=== PATIENT | female | born 1975 | race Caucasian/White ===

== ENCOUNTER 2025-04-05 11:12 | Emergency (ER) | payer BC, SELFPAY ==
[2025-04-05 11:35] VITALS: BP 164/123; PULSE 132; RESP 18; TEMP 36.8; O2SAT 98; BMI 25.0
--- NOTE | 2025-04-05 11:41 | EKG_ITS ---
[facility] Test Date: 2025-04-05 Pat Name: BALA BRISCOE Department: Room: - Gender: Female Parts Runner: : 1975 Requested By: Pasha Dela Cruz ([email or web address]) Order Number: [id number] Reading MD: Pasha Dela Cruz (CLAIM SPECIALIST) Measurements Intervals [place] Rate: 131 P: 80 VA: 157 QRS: 88 QRSD: 68 T: 68 QT: 306 QTc: 453 Interpretive Statements SINUS TACHYCARDIA WITH OCCASIONAL VENTRICULAR PREMATURE COMPLEXES SEPTAL MYOCARDIAL INFARCTION , OF INDETERMINATE AGE [40+ ms Q WAVE IN V1/V2] No previous ECG available for comparison /store/S0/[id number].pdf
--- NOTE | 2025-04-05 11:41 | XR_ITS ---
Examination: PA chest single view TECHNIQUE: Upright PA chest single view Date and time: April 05, 2025, 1251 hours INDICATIONS: Rapid heartbeat chest pain and numbness today FINDINGS: Breast implants produce increased density overlying the chest Normal heart size The lungs are clear Bilateral axillary surgical clips Intact osseous structures IMPRESSION: No active disease
--- NOTE | 2025-04-05 11:56 | PD.EDADULT ---
ED General RME/HPI General Chief complaint: Extremity Problem,Nontraumatic Stated complaint: NUMB/TINGLING HANDS, RAPID HEART BEAT, LIGHT HEAD Time Seen by Provider: 04/05/25 11:56 Arrival date/time: 04/05/25 11:12 RME / HPI RME / HPI narrative: DR. PINON MAIN ED EVALUATION: 50-year-old female with history of cancer (status post double mastectomy) presents accompanied by her for evaluation of lightheadedness and right-hand numbness and tingling that began 2 days ago. She also mentioned she had numbness and tingling of the lips lasted for one day and that happened 2 days ago. She reports significant anxiety regarding her symptoms. Denies pain, recent falls, trauma, dysuria, urinary difficulties, constipation, vaginal bleeding, or rectal bleeding. Family history notable for diabetes. Current smoker. Allergy to codeine. Related Data Previous Rx's ?Medication ?Instructions ?Recorded lisinopril 20 mg tablet 20 mg PO QDAY #30 tabs 04/05/25 metformin 500 mg tablet 500 mg PO BID #60 tabs 04/05/25 Allergies Allergy/AdvReac Type Severity Reaction Status Date / Time codeine AdvReac Mild VOMITING Verified 04/05/25 11:16 Review of Systems Review of Systems Systems Reviewed: All systems reviewed, normal except as documented Past Medical History Family History OTHER FAMILY HX: Family history notable for diabetes. Social History SMOKING STATUS: Heavy (> 1 pack/day) SUBSTANCE USE: does not use Past Medical History Comments PMH COMMENT: Cancer (status post double mastectomy). ED Exam Narrative Physical exam: Physical Exam: General: The vital signs were reviewed. Anxious appearing hypertensive on the monitor the patient is non-toxic, in no apparent distress and appears healthy with a patent airway, no respiratory distress and has no apparent circulatory problems. Head & Scalp: Normocephalic, atraumatic. Face: Appears normal and is without lesions, deformity. Ears: Left external pinna appears normal. Right external pinna appears normal. Eyes: The sclera is anicteric. No obvious photophobia. The Left and Right Orbit/Lid/Conjunctiva appears normal without swelling, discoloration or injection. Nose: The nose is without deformity, discharge or tenderness; Throat: Appears normal. The mucous membranes are pink and moist without exudates, redness or mass seen. The tongue appears normal. Neck: The neck is supple and no apparent mass or adenopathy. Chest: The chest wall is normal in size and symmetry and has no chest wall tenderness or crepitus. The patient displays normal ventilator effort without retractions, accessory muscle use and has adequate air movement bilaterally with no wheezes and no rales. Cardiovascular: Regular rate and rhythm; No murmurs, rubs, or gallops; Gastrointestinal: The abdomen appears normal. No obvious hernias or mass. The abdomen is soft and benign, non-distended, with no pain, no guarding and no rebound tenderness. Bowel sounds are present and normal sounding. No CVA tenderness. Genitourinary: Back/Spine: Normal inspection Extremities/Musculoskeletal/lymphatic: The bilateral upper and lower extremities are warm. There is no evidence of arterial insufficiency. There is no evidence of venous insufficiency/edema. The patient spontaneously moves bilateral upper and lower extremities with no pain and no limitation of movement. There is no apparent, injury or trauma. Skin: The skin is warm, dry and intact. No rashes. No petechia. No purpura. No abnormal bruising. The color is appropriate with no cyanosis. Mental status/Psychiatric: Mental status is appropriate for age. The patient has no apparent delusions, visual hallucinations, no apparent audible hallucinations. The patient has no apparent suicidal thoughts/ideation and no apparent homicidal thoughts/ideation. Neurological: The patient is awake, alert, interactive, cordial, cooperative and is oriented to name and situation. The patient follows commands and answers historical question with no impairment. There is no visual disturbance apparent. The pupils are equal and reactive bilaterally with normal eye movements and no diplopia The bilateral upper and lower extremities have normal strength, normal range of motion and normal functioning. The gait, station and balance appear to be baseline with no acute change Course Quality Measures none Orders Category Date Time Status Salt Grinder NOW Care 04/05/25 11:41 Active EKG (ED ONLY) *Do not use* NOW Care 04/05/25 11:41 Completed EKG (ED Only) Stat Exams 04/05/25 11:41 Draft XR chest 1V portable Stat Exams 04/05/25 11:41 Completed B-Type Natriuretic Peptide Stat Lab 04/05/25 11:57 Completed CBC Stat Lab 04/05/25 11:57 Completed Comprehensive Metabolic Panel Stat Lab 04/05/25 11:57 Completed Drug Screen,Urine Stat Lab 04/05/25 12:10 Completed Free T4 (Free Thyroxine) Stat Lab 04/05/25 11:57 Completed HCG Qualitative,Urine Stat Lab 04/05/25 12:10 Completed Hemoglobin A1C [Glycohemoglobin w (eAG)] Stat Lab 04/05/25 15:37 Ordered Magnesium Stat Lab 04/05/25 11:57 Completed Partial Thromboplastin Time Stat Lab 04/05/25 11:57 Completed Prothrombin Time with INR Stat Lab 04/05/25 11:57 Completed TSH [Thyroid Stimulating Hormone] Stat Lab 04/05/25 11:57 Completed Troponin I Stat Lab 04/05/25 11:57 Completed Urinalysis Stat Lab 04/05/25 12:10 Completed Lisinopril [Prinivil] Med 04/05/25 15:37 Discontinued 20 mg PO X1 ONE Vital Signs Vital signs: Vital Signs Temperature 98.2 F 04/05/25 11:35 Pulse Rate 132 H 04/05/25 11:35 Respiratory Rate 18 04/05/25 11:35 Blood Pressure 164/123 H 04/05/25 11:35 Pulse Oximetry (%) 98 04/05/25 11:35 Oxygen Delivery Method Room Air 04/05/25 11:35 Discharge Plan Plan Patient Disposition: HOME (Self Care) Prescriptions/Referrals Prescriptions/Med Rec: New lisinopril 20 mg tablet 20 mg PO QDAY Qty: 30 0RF metformin 500 mg tablet 500 mg PO BID Qty: 60 0RF Referrals: No Primary/Family,Physician [Primary Care Provider] - In 1 week Problem List Clinical Impression: Anxiety reaction, Hyperglycemia, Hypertension, Polycythemia Patient/Caregiver Discharge Instructions Additional Instructions: As we discussed keep a diary of all your symptoms and share them with your doctor in the next follow-up. As you mentioned you have elevated sugars for a long period of time suggest you have diabetes and today your sugar was 340. Start you on metformin 500 mg twice a day. There is a hemoglobin A1c that was ordered and will be pending. Also your blood pressure is again elevated and we will start you on lisinopril 20 mg a day. Your doctor will reevaluate you and adjust and add further agents as needed. Also important to stop smoking. Smoking does cause increase in your red blood cell count which causes something called polycythemia. Have your doctor address this. Print Language: Amharic [facility] Narrative [facility] hospital course: I, Tanya Lane, am scribing for and in the presence of Dr. Pinon. The patient comes in and is quite anxious worried about tingling in her lips and hands and eventually reports having high blood pressure for years along with some diabetes but elected not to be treated. After giving some reassurance her blood pressure was high but we just elected to watch it and it came down to the 130/98 range with no medications. But nonetheless she remains hypertensive laboratory studies showed a urine drug screen to be unremarkable urine was negative other than she has 4+ glucose her sugar was 340 on the CHEM panel BUN was 6 and creatinine was 0.8 electrolytes were normal PT/INR were normal CBC and blood counts revealed a mild polycythemia but notes she is a smoker. Also notes she had a labile tachycardia Went back in the room and is shared with her that she does have diabetes that should be started on metformin and she was started on blood pressure medicines and that her doctors need to follow her up for long-term management. She seems understand this. She also knows she still anxious and worried about the tingly feeling she had but she was reassured. Her is present and will make sure a follow-up and encourage keeping a diary for her anxiety. Clinical Information Provided by patient and spouse Medical Records Reviewed None (no previous visits) Meds/Rx Considered, not Ordered None Labs/Rad/Tests considered, not Ordered None Chronic Illness/Social Conditions Add or document further as needed: Cancer (status post double mastectomy). Family history notable for diabetes. Current smoker. Allergy to codeine. EKG EKG Interpretation narrative: My interpretation: EKG performed at 1143 hours, sinus tachycardia, rate 131, no STEMI Lab Interpretation Labs: see narrative above Imaging Imaging interpretation: see narrative above Radiology reports / interpretation(s): Procedure(s): XR chest 1V portable Accession Number(s): [id number] cc: Lanie (KWABENA),Pasha YUAN; Iron Ni MD~ Examination: PA chest single view TECHNIQUE: Upright PA chest single view Date and time: April 05, 2025, 1251 hours INDICATIONS: Rapid heartbeat chest pain and numbness today FINDINGS: Breast implants produce increased density overlying the chest Normal heart size The lungs are clear Bilateral axillary surgical clips Intact osseous structures IMPRESSION: No active disease Dictated By: Iron Ni MD Medication Administration(s) Medication Administration History Discontinued Medications Lisinopril (Lisinopril 20 Mg Tablet) 20 mg PO X1 ONE Stop: 04/05/25 15:38 Diagnosis Differential diagnosis: TIA, peripheral neuropathy, and anxiety-related paresthesia Most likely dx, and/or detailed dx discussion: Anxiety Hyperglycemia Hypertension Polycythemia Dispositon Disposition: Discharge Home
[2025-04-05 12:24] LABS: Basophils # (Auto) 0.0 Thou/mm3 (0.0-0.2); Basophils % (Auto) 0 % (0-2.5); Eosinophils # (Auto) 0.1 Thou/mm3 (0.0-0.5); Eosinophils % (Auto) 0 % (0-10); Hematocrit 52.1 % (36.0-46.0); Hemoglobin 17.6 g/dL (12.0-16.0); Immature Granulocytes Auto 0.03 Thou/mm3 (0.00-0.00); Lymphocytes # (Auto) 2.6 Thou/mm3 (1.0-4.8); Lymphocytes % (Auto) 23 % (10-50); Mean Corpuscular HGB Conc 33.8 g/dl (31.0-37.0); Mean Corpuscular Hemoglobin 30.1 pg (25.0-35.0); Mean Corpuscular Volume 89 fL (80-100); Monocytes # (Auto) 0.8 Thou/mm3 (0.0-0.8); Monocytes % (Auto) 7 % (0-12); Neutrophils # (Auto) 7.8 Thou/mm3 (1.8-7.7); Neutrophils % (Auto) 69 % (37-80); Nucleated Red Blood Cell # 0.00 Thou/mm3 (0.00-0.00); Nucleated Red Blood Cell % 0 /100 WBC (0); Platelet Count 209 Thou/mm3 (140-440); RDW Standard Deviation 39.2 fL (36.4-46.3); Red Blood Count 5.84 Miln/mm3 (4.00-5.20); White Blood Count 11.3 Thou/mm3 (3.6-11.0)
[2025-04-05 12:24] LABS: Collection Type, Urine Clean Catch
[2025-04-05 12:25] VITALS: PULSE 124
[2025-04-05 12:53] LABS: Amphetamine/Methamp Scrn,U Negative (Negative); Barbiturate Screen,Urine Negative (Negative); Benzodiazepines Screen,Urine Negative (Negative); Benzoylecgonine Screen, Ur Negative (Negative); Bilirubin,Urine Negative (Negative); Blood,Urine Negative (Negative); Clarity,Urine Clear (Clear/Hazy); Color,Urine Lt-Yellow (Lt Yel-Yel); Fentanyl Screen,Urine Negative (Negative); Glucose, Urine 4+ (Negative); Ketones,Urine 1+ (Negative); Leukocyte Esterase,Urine Positive (Negative); Nitrite,Urine Negative (Negative); Opiate Screen,Urine Negative (Negative); PH,Urine 6.0 (5.0-7.0); Protein,Urine Trace (Neg - Trace); RBC,Urine 2 /hpf (0-3); Specific Gravity,Urine 1.005 (1.001-1.035); Squamous Epithelial Cell,Urine 1 /hpf (0-5); THC Screen,Urine Negative (Negative); Urobilinogen,Urine Negative mg/dL (0.0-1.0); WBC,Urine 3 /hpf (0-5)
[2025-04-05 12:54] LABS: HCG Qualitative,Urine Negative
[2025-04-05 12:57] LABS: B-Type Natriuretic Peptide 43 pg/mL (0-100)
[2025-04-05 13:00] LABS: INR 1.0 (0.9-1.3); Partial Thromboplastin Time 26.3 Seconds (22.0-36.0); Prothrombin Time 10.9 Seconds (9.0-12.2)
[2025-04-05 13:03] LABS: Alanine Aminotransferase 13 U/L (10-49); Albumin, Serum 4.6 gm/dL (3.5-5.0); Albumin/Globulin Ratio 2.3 (1.2-2.2); Alkaline Phosphatase 166 U/L (46-116); Anion Gap 12 (7-16); Aspartate Amino Transferase 14 U/L (0-34); BUN/Creatinine Ratio 8 Ratio (12-20); Bilirubin,Total 1.1 mg/dL (0.3-1.2); Blood Urea Nitrogen 6 mg/dL (9-23); Calcium 9.5 mg/dL (8.3-10.6); Calcium (Corrected) 9.5 mg/dL (8.5-10.1); Carbon Dioxide 23.1 mMol/L (20.0-31.0); Chloride 103 mMol/L (98-107); Creatinine (Component) 0.8 mg/dL (0.6-1.3); Estimated Creatinine Clearance 80.9 mL/min (>60); Free T4 (Free Thyroxine) 1.43 ng/dL (0.89-1.76); Globulin 2.0 gm/dL (2.3-3.5); Glucose 340 mg/dL (74-106); Magnesium 1.5 mg/dL (1.6-2.6); Osmolality,Calculated 286 (275-295); Potassium 4.2 mMol/L (3.4-5.1); Sodium 138 mMol/L (136-145); Thyroid Stimulating Hormone 1.43 uIU/mL (0.55-4.78); Total Protein 6.6 gm/dL (5.7-8.2); Troponin I < 0.002 ng/mL (0.0-0.045); eGFR > 60 See Note
[2025-04-05 14:07] VITALS: BP 148/99; PULSE 93; RESP 23; TEMP 37.1; O2SAT 96
[2025-04-05 15:57] VITALS: BP 148/99; PULSE 98
[2025-04-05 16:39] LABS: Glucose Estimated Average 275 mg/dL (80-131); Hemoglobin A1C 11.2 % Hgb (4.8-6.0)
== END 2025-04-05 16:03 | disposition home or self-care (01) ==
PROVIDERS: Nurse Practitioner Primary Care; Emergency Provider Emergency Medicine
DX: D75.1 Secondary polycythemia (principal); F41.1 Generalized anxiety disorder; R73.9 Hyperglycemia, unspecified; I10 Essential (primary) hypertension; R07.9 Chest pain, unspecified; R00.0 Tachycardia, unspecified; I49.3 Ventricular premature depolarization; F17.210 Nicotine dependence, cigarettes, uncomplicated; Z83.3 Family history of diabetes mellitus
CPT/HCPCS: 36415; 71045; 80053; 80307; 81001; 81025; 83036; 83735; 83880; 84439; 84443; 84484; 85025; 85610; 85730; 93005; 99284; A9270

== ENCOUNTER → 2025-05-12 | Outpatient (CLI) | payer BC, SELFPAY ==
[2025-05-12 07:36] LABS: Misc Send Out* See Sep Rpt
[2025-05-12 08:43] LABS: Basophils # (Auto) 0.0 Thou/mm3 (0.0-0.2); Basophils % (Auto) 0 % (0-2.5); Eosinophils # (Auto) 0.1 Thou/mm3 (0.0-0.5); Eosinophils % (Auto) 1 % (0-10); Hematocrit 48.3 % (36.0-46.0); Hemoglobin 16.7 g/dL (12.0-16.0); Immature Granulocytes Auto 0.04 Thou/mm3 (0.00-0.00); Lymphocytes # (Auto) 3.6 Thou/mm3 (1.0-4.8); Lymphocytes % (Auto) 33 % (10-50); Mean Corpuscular HGB Conc 34.6 g/dl (31.0-37.0); Mean Corpuscular Hemoglobin 30.6 pg (25.0-35.0); Mean Corpuscular Volume 89 fL (80-100); Monocytes # (Auto) 0.7 Thou/mm3 (0.0-0.8); Monocytes % (Auto) 7 % (0-12); Neutrophils # (Auto) 6.3 Thou/mm3 (1.8-7.7); Neutrophils % (Auto) 59 % (37-80); Nucleated Red Blood Cell # 0.00 Thou/mm3 (0.00-0.00); Nucleated Red Blood Cell % 0 /100 WBC (0); Platelet Count 245 Thou/mm3 (140-440); RDW Standard Deviation 40.4 fL (36.4-46.3); Red Blood Count 5.45 Miln/mm3 (4.00-5.20); White Blood Count 10.7 Thou/mm3 (3.6-11.0)
[2025-05-12 09:15] LABS: Alanine Aminotransferase 12 U/L (10-49); Albumin, Serum 4.7 gm/dL (3.5-5.0); Albumin/Globulin Ratio 2.6 (1.2-2.2); Alkaline Phosphatase 104 U/L (46-116); Anion Gap 11 (7-16); Aspartate Amino Transferase 13 U/L (0-34); BUN/Creatinine Ratio 16 Ratio (12-20); Bilirubin,Total 1.1 mg/dL (0.3-1.2); Blood Urea Nitrogen 13 mg/dL (9-23); Calcium 10.0 mg/dL (8.3-10.6); Calcium (Corrected) 10.0 mg/dL (8.5-10.1); Carbon Dioxide 24.7 mMol/L (20.0-31.0); Cardiac Risk Estimate 6.7 RATIO (3.7-5.6); Chloride 103 mMol/L (98-107); Cholesterol 253 mg/dL (132-200); Creatinine (Component) 0.8 mg/dL (0.6-1.3); Globulin 1.8 gm/dL (2.3-3.5); Glucose 195 mg/dL (74-106); HDL Cholesterol 38 mg/dL (40-60); LDL Cholesterol,Calculated 182 mg/dL (0-130); Osmolality,Calculated 282 (275-295); Potassium 4.2 mMol/L (3.4-5.1); Sodium 139 mMol/L (136-145); Thyroid Stimulating Hormone 1.50 uIU/mL (0.55-4.78); Total Protein 6.5 gm/dL (5.7-8.2); Triglycerides 164 mg/dL (30-150); Uric Acid 5.5 mg/dL (3.1-7.8); eGFR > 60 See Note
[2025-05-12 09:34] LABS: Follicle Stimulating Hormone 67.43 mIU/mL (See Note); Vitamin B12 480 pg/mL (211-911); Vitamin D 25 Hydroxy Total 35.2 ng/mL (7.3-40.2)
[2025-05-12 09:57] LABS: Creatinine MALB Rnd Ur 136 mg/dL (30-125); Microalbumin Creat Ratio 109 mg/gCrea (<30); Microalbumin, Random Urine 148 mg/L (0-300)
[2025-05-12 10:36] LABS: Glucose Estimated Average 223 mg/dL (80-131); Hemoglobin A1C 9.4 % Hgb (4.8-6.0)
[2025-05-21 06:33] LABS: Aldosterone* 18 ng/dL; Estrogen, Total, Serum* 50 pg/mL; Luteinizing Hormone* 37.5 mIU/mL; Progesterone,LC/MS* <0.1 ng/mL
== END | disposition home or self-care (01) ==
LOC: COPL 07:16
PROVIDERS: PCP Internal Medicine; Referring Provider Internal Medicine Cardiovascular Disease; Visit Provider Internal Medicine
DX: Z00.00 Encounter for general adult medical examination without abnormal findings (principal); I10 Essential (primary) hypertension; E11.9 Type 2 diabetes mellitus without complications
CPT/HCPCS: 36415; 80053; 80061; 82043; 82088; 82306; 82570; 82607; 82672; 83001; 83002; 83036; 84144; 84244; 84443; 84550; 85025

== ENCOUNTER 2025-05-18 11:30 | Emergency (ER) | payer BC, SELFPAY ==
[2025-05-18] VITALS (8 sets, daily range): BP systolic 105–142; BP diastolic 63–92; PULSE 81–142; RESP 16–19; TEMP 36.7–37.1; O2SAT 98–100; BMI 24.4
--- NOTE | 2025-05-18 11:34 | PC.NURSE ---
PT BROUGHT IN TO OLD TRIAGE ROOM FOR DR. CERVANTES TO EVALUATE FOR POSSIBLE STROKE SINCE PT STATED HAD SMALL STROKE A MONTH AGO. NO STROKE ALERT AT THIS TIME PER DR. MILLER
--- NOTE | 2025-05-18 11:45 | EDNOTE_ITS ---
ED Chest Pain RME/HPI General Chief Complaint: Chest Pain Stated Complaint: DIZZY/CXP/SOB SINCE APPROX 0800 Time Seen by Provider: 05/18/25 11:46 Arrival date/time: 05/18/25 11:30 Limitations: no limitations RME / HPI RME / HPI narrative: DR. BILLY CAREY ED EVALUATION: 50-year-old female with past medical history of diabetes mellitus, hypertension, and mild stroke one month ago presents to the Emergency Department accompanied by her with complaints of chest tightness, palpitations, and dizziness described as feeling shaky and loopy without vertigo. Symptoms began upon waking this morning. She reports her heart rate was 135 at home. Blood glucose is 202 on arrival. She takes metformin and lisinopril, with recent adjustments in her medications. She smokes one pack per day. She denies abdominal pain, dysuria, or other associated symptoms. Allergies: codeine. Related Data Previous Rx's ?Medication ?Instructions ?Recorded lisinopril 20 mg tablet 20 mg PO QDAY #30 tabs 04/05 metformin 500 mg tablet 500 mg PO BID #60 tabs 04/05 Allergies Allergy/AdvReac Type Severity Reaction Status Date / Time codeine AdvReac Mild VOMITING Verified 05/18/25 11:35 Review of Systems Review of Systems Systems Reviewed: All systems reviewed, normal except as documented Past Medical History Past Medical History ENDOCRINE: Positive Diabetes Mellitus Type 2 Social History SMOKING STATUS: Current every day smoker SUBSTANCE USE: does not use ED Exam General Limitations: Present no limitations General appearance: Present alert, in no apparent distress and other (worried- appearing) Head Head exam: Present atraumatic, normocephalic and normal inspection Eye Eye exam: Present normal appearance, PERRL and EOMI ENT ENT exam: Present normal exam, normal oropharynx and mucous membranes moist Neck Neck exam: Present normal inspection, full ROM and trachea midline Chest Chest inspection: Present normal inspection and symmetric chest wall rise Respiratory Respiratory exam: Present normal lung sounds bilaterally Cardiovascular Cardiovascular exam: Present regular rate, normal rhythm and normal heart sounds Abdominal Exam Abdominal exam: Present soft and normal bowel sounds Extremities Exam Extremities exam: Present normal inspection and full ROM Back Exam Back exam: Present normal inspection and full ROM Neurological Exam Neurological exam: Present alert, oriented X3 and CN II-XII intact Psychiatric Psychiatric exam: Present normal affect and normal mood Skin Skin exam: Present warm, dry, intact and normal color Course Quality Measures none Orders Category Date Time Status CT Screening NOW Care 05/18/25 11:[address] Screening NOW Care 05/18/25 16:44 Active EKG (ED ONLY) *Do not use* NOW Care 05/18/25 11:[address] abdomen pelvis w con Stat Exams 05/18/25 16:[address] angio chest Stat Exams 05/18/25 11:[address] head/brain wo con Stat Exams 05/18/25 11:47 Completed CXR [XR chest 1V] Stat Exams 05/18/25 11:47 Completed EKG (ED Only) Stat Exams 05/18/25 11:47 Ordered US abdomen Stat Exams 05/18/25 16:45 Taken CBC Stat Lab 05/18/25 12:17 Completed CMP [Comprehensive Metabolic Panel] Stat Lab 05/18/25 12:17 Completed Drug Screen,Urine Stat Lab 05/18/25 12:09 Completed T4 (Thyroxine) Stat Lab 05/18/25 12:17 Received TSH [Thyroid Stimulating Hormone] Stat Lab 05/18/25 12:17 Received Troponin I Stat Lab 05/18/25 12:17 Completed UA, C/S IF [Urinalysis, C/S if Indicated] Stat Lab 05/18/25 11:50 Completed Aspirin Chew Med 05/18/25 12:57 Discontinued 162 mg PO X1 ONE Ringers Lactated 1000 ml [Lactated Ringers] 1,000 ml Med 05/18/25 11:47 Discontinued IV 999 mls/hr Vital Signs Vital signs: Vital Signs Temperature 98.6 F 05/18/25 11:42 Pulse Rate 142 H 05/18/25 11:42 Respiratory Rate 19 05/18/25 11:42 Blood Pressure 142/92 H 05/18/25 11:42 Pulse Oximetry (%) 99 05/18/25 11:42 Oxygen Delivery Method Room Air 05/18/25 11:42 Chest Pain MDM Narrative MDM Narrative:: ITanya am scribing for and in the presence of Dr. Solis. Patient is a 50-year-old female is in the emerged primary concerns for chest pain, and feeling lightheaded. Vital signs and exam as listed. Concern for acute intracranial hemorrhage, metabolic disturbance, arrhythmia, ACS among others. Ordered labs, CT brain, CT angio of the chest. Labs without acute hematologic abnormality, hemoglobin 16.8, no acute electrolyte abnormality, T. bili not elevated, troponin not elevated, urinalysis without evidence of infection. Drug screen negative. CT brain unremarkable. CT of the chest with incidental finding of enlarging fat-containing mass medial to the spleen on the left. Measures 7.4 cm. Ordered abdominal ultrasound as well as CT abdomen pelvis with contrast. Also ordered thyroid studies. EKG performed today at 12:34 PM notable for sinus rhythm, heart rate 94, normal intervals, nonspecific T wave changes, no cardiac alert. measuring 7.4 cm Patient signed out pending results of her CT and ultrasound and safe dispo. Patient data External records reviewed:: [facility] previous records Clinical information provided by:: patient and spouse Social determinants that could affect healthcare access:: other (specify) (smokes a pack a day) Patient has the following chronic illnesses:: Diabetes mellitus, hypertension, and mild stroke one month ago. Allergies: codeine. How is presenting disease/condition affected by chronic disease/condition?: exacerbated by Evaluation data The following diagnostics were reviewed and interpreted by me:: lab results, radiology exam(s) and EKG tracing(s) Lab and/or radiology exams considered but not ordered:: none Interpretation Summary: Procedure(s): XR chest 1V Accession Number(s): [id number] cc: Iron Ni MD; Wendy Solis MD; Mercedes Banerjee MD~ Examination: AP chest single view Technique one AP portable upright chest single view Date and time: May 18, 2025, 12:41 PM, comparison April 05, 2025 Indications: Shortness of breath today. Findings: Bilateral axillary surgical clips Normal heart size No pneumonia or pulmonary edema Impression: No active disease Dictated By: Iron Ni MD Procedure(s): CT angio chest Accession Number(s): [id number] cc: Iron Ni MD; Wendy Solis MD; Mercedes Banerjee MD~ Examination: CTA chest with intravenous contrast 2-D reconstructions 3-D reconstructions, vascular Date and time of exam: May 18, 2025, 1353 hrs. Indications: Onset chest pain shortness of breath today, clinical diagnosis pulmonary embolus CTDI: vol (mGy) 11.5 DLP: (mGycm) 200 Technique: Multiple axial sections of the thorax have been obtained. 3 mm slice thickness, from below the hemidiaphragms to above the apices of the lungs. Mediastinal and lung density settings have been obtained. 2-D sagittal and coronal reconstructions. 3-D angiographic renderings, 3-D volume renderings, 3D post processing, vascular maximum intensity projections obtained. Contrast administered is 100 cc Isovue-370. Low dose protocols were performed. One or more of the following dose reduction techniques were used; automated exposure control, adjustment of the mA and/or KV according to patient size, use of iterative reconstruction technique. Findings: Bilateral subcentimeter thyroid nodules No thoracic aortic aneurysm dilatation or dissection Pulmonary artery segments are not enlarged No pulmonary artery filling defects No paratracheal tracheobronchial or bronchopulmonary adenopathy Minor atelectasis in the lingular segment and right base No lobar pneumonia or pulmonary edema No pancreatic mass Again noted and enlarging fat-containing mass which is medial to the spleen and posterior to the left kidney Impression: Negative for pulmonary artery emboli Enlarging fat-containing mass medial to the spleen on the left, currently measuring 7.4 cm Recommend ultrasound abdomen to further assess the consistency 4 slight density of this mass Dictated By: Iron Ni MD Procedure(s): CT head/brain wo con Accession Number(s): [id number] cc: Iron Ni MD; Wendy Solis MD; Mercedes Banerjee MD~ Examination: CT brain head without contrast. 2-D sagittal coronal reconstructions Date and time of exam:May 18, 2025, 1349 hrs. Indications: Generalized head pain beginning today CTDI: vol (mGy):44.1 DLP: (mGycm):856 Technique: Multiple CT axial sections of the brain have been obtained, 5 mm slice thickness. Contrast has not been administered. 2-D sagittal, coronal reconstructions have been obtained Low dose protocols were performed. One or more of the following dose reduction techniques were used; automated exposure control, adjustment of the mA and/or KV according to patient size, use of iterative reconstruction technique. Findings: No significant ventricular enlargement. Intra-axial or extra-axial hemorrhage density is not seen. No mass effect or midline shift Basal cisterns are not remarkable. Fourth ventricle is midline. Cranial vault intact. Impression: Negative for acute hemorrhage, mass effect or midline shift Advise clinical correlation follow-up accordingly Dictated By: Iron Ni MD Medications / Prescriptions Medications or Prescriptions considered but not ordered:: none Medication administrations:: Medication Administration History Discontinued Medications Aspirin (Aspirin 81 Mg Chew) 162 mg PO X1 ONE Stop: 05/18/25 12:58 Last Admin: 05/18/25 13:21 Dose: 162 mg Documented By: BY Lactated Ringer's (Lactated Ringers) 1,000 mls @ 999 mls/hr IV .Q1H1M ONE Stop: 05/18/25 12:47 Last Infusion: 05/18/25 13:23 Dose: Infused Documented By: Admin: 05/18/25 12:06 Dose: 999 mls/hr Documented By: BY see above Consultations Consultation(s) initiated? (list below): No Diagnosis Chest Pain Differential Diagnosis: other (Arrhythmia (AFib/SVT), acute coronary syndrome, and medication side effect.) Most likely diagnosis given after review of the tests above:: Tachycardia Palpitations Admission Indicated Admission indicated?: not indicated Explain why admission is indicated or not indicated:: No final disposition plan at this time, still pending diagnostic tests. Patient signout to the caustic cresylate shift superintendent provider. Admission Request Was there a request for admission?: No Disposition Plan Disposition Plan: other (specify) (Patient signed out to Dr. Brand.) Discharge Plan Prescriptions/Referrals Prescriptions/Med Rec: No Action lisinopril 20 mg tablet 20 mg PO QDAY Qty: 30 0RF metformin 500 mg tablet 500 mg PO BID Qty: 60 0RF Referrals: Mercedes Banerjee MD [Primary Care Provider, Nephrology] - In 1 week Problem List Clinical Impression: Tachycardia, Palpitations Patient/Caregiver Discharge Instructions Print Language: Kinyarwanda
[2025-05-18] MEDS: RINGERS LACTATED 1000 ML 1,000 ML 999 ML IV (12:06)
[2025-05-18 12:46] LABS: Basophils # (Auto) 0.0 Thou/mm3 (0.0-0.2); Basophils % (Auto) 0 % (0-2.5); Eosinophils # (Auto) 0.0 Thou/mm3 (0.0-0.5); Eosinophils % (Auto) 0 % (0-10); Hematocrit 47.8 % (36.0-46.0); Hemoglobin 16.8 g/dL (12.0-16.0); Immature Granulocytes Auto 0.04 Thou/mm3 (0.00-0.00); Lymphocytes # (Auto) 3.0 Thou/mm3 (1.0-4.8); Lymphocytes % (Auto) 30 % (10-50); Mean Corpuscular HGB Conc 35.1 g/dl (31.0-37.0); Mean Corpuscular Hemoglobin 30.9 pg (25.0-35.0); Mean Corpuscular Volume 88 fL (80-100); Monocytes # (Auto) 0.8 Thou/mm3 (0.0-0.8); Monocytes % (Auto) 8 % (0-12); Neutrophils # (Auto) 6.1 Thou/mm3 (1.8-7.7); Neutrophils % (Auto) 61 % (37-80); Nucleated Red Blood Cell # 0.00 Thou/mm3 (0.00-0.00); Nucleated Red Blood Cell % 0 /100 WBC (0); Platelet Count 221 Thou/mm3 (140-440); RDW Standard Deviation 39.8 fL (36.4-46.3); Red Blood Count 5.44 Miln/mm3 (4.00-5.20); White Blood Count 9.9 Thou/mm3 (3.6-11.0)
[2025-05-18 12:57] LABS: Collection Type, Urine Clean Catch; RBC,Urine 0 /hpf (0-3)
[2025-05-18 12:59] LABS: Alanine Aminotransferase 10 U/L (10-49); Albumin, Serum 4.6 gm/dL (3.5-5.0); Albumin/Globulin Ratio 2.4 (1.2-2.2); Alkaline Phosphatase 97 U/L (46-116); Anion Gap 14 (7-16); Aspartate Amino Transferase 12 U/L (0-34); BUN/Creatinine Ratio 11 Ratio (12-20); Bilirubin,Total 0.9 mg/dL (0.3-1.2); Blood Urea Nitrogen 8 mg/dL (9-23); Calcium 10.0 mg/dL (8.3-10.6); Calcium (Corrected) 10.0 mg/dL (8.5-10.1); Carbon Dioxide 21.9 mMol/L (20.0-31.0); Chloride 104 mMol/L (98-107); Creatinine (Component) 0.7 mg/dL (0.6-1.3); Estimated Creatinine Clearance 92.5 mL/min (>60); Globulin 1.9 gm/dL (2.3-3.5); Glucose 166 mg/dL (74-106); Osmolality,Calculated 281 (275-295); Potassium 4.0 mMol/L (3.4-5.1); Sodium 140 mMol/L (136-145); Total Protein 6.5 gm/dL (5.7-8.2); Troponin I < 0.020 ng/mL (0.0-0.045); eGFR > 60 See Note
[2025-05-18 13:10] LABS: Bacteria,Urine Rare; Bilirubin,Urine Negative (Negative); Blood,Urine Negative (Negative); Clarity,Urine Clear (Clear/Hazy); Color,Urine Colorless (Lt Yel-Yel); Culture Indicated,Urine Not Indicated; Glucose, Urine Negative (Negative); Ketones,Urine 1+ (Negative); Leukocyte Esterase,Urine Negative (Negative); Nitrite,Urine Negative (Negative); PH,Urine 6.5 (5.0-7.0); Protein,Urine Negative (Neg - Trace); Specific Gravity,Urine 1.005 (1.001-1.035); Squamous Epithelial Cell,Urine 2 /hpf (0-5); Urobilinogen,Urine Negative mg/dL (0.0-1.0); WBC,Urine 1 /hpf (0-5)
[2025-05-18 13:15] LABS: Amphetamine/Methamp Scrn,U Negative (Negative); Barbiturate Screen,Urine Negative (Negative); Benzodiazepines Screen,Urine Negative (Negative); Benzoylecgonine Screen, Ur Negative (Negative); Fentanyl Screen,Urine Negative (Negative); Opiate Screen,Urine Negative (Negative); THC Screen,Urine Negative (Negative)
[2025-05-18] MEDS: ASPIRIN 81 MG CHEW 162 MG PO (13:21)
--- NOTE | 2025-05-18 16:44 | XR_ITS ---
Examination: CT abdomen with intravenous contrast CT pelvis with intravenous contrast 2-D coronal reconstructions 2-D sagittal reconstructions Date and time of exam:May 18, 2025, 1700 hrs., Comparison October 10, 2008, 05/18/2025 1353 hrs.. CTDI: vol (mGy) 7.9 DLP: (mGycm) 422 Technique: Multiple axial sections of the abdomen and pelvis have been obtained. 64 slice high-resolution scanner used. 3 mm axial sections have been obtained, post intravenous injection 60 cc Isovue-370 2-D sagittal, coronal reconstructions obtained. Low dose protocols were performed. One or more of the following dose reduction techniques were used; automated exposure control, adjustment of the mA and/or KV according to patient size, use of iterative reconstruction technique. Findings: No focal liver or splenic lesions No gallstones No pancreatic mass Minimal nodular thickening left adrenal gland No change in the fat-containing mass medial to the spleen without obvious enhancement No hydronephrosis Aorta normal size No ascites Atrophic uterus Fluid in the bowel loop rather than right ovarian cyst Impression: 5.4 cm nonenhancing fat-containing mass medial to the spleen, this mass is evident on prior CT scans including the October 10, 2008 examination, the mass was biopsied April 07, 2008
--- NOTE | 2025-05-18 16:45 | XR_ITS ---
Examination: Abdomen sonogram, complete Date and time of exam: May 18, 2025, 1702 hrs. Indications: Fat-containing mass medial to the spleen noticed on CT imaging dated to 2008. Technique: Multiple real-time grayscale transabdominal sonographic images of the abdomen have been obtained. Findings: Normal gallbladder. Normal common bile duct 0.3 cm Pancreatic head 2.1 cm Aorta not enlarged. Liver 17.7 cm fatty infiltration Normal hepatopedal portal venous flow Patent IVC Right kidney 11.2 cm renal cortex 1.7 cm Left kidney 10.7 cm cortex 2.3 cm Fat-containing lesion medial to the spleen which measures 8.04 x 7.36 cm Impression: Fat-containing lesion medial to the spleen which measures 8.04 x 7.36 cm
--- NOTE | 2025-05-18 17:00 | PC.NURSE ---
md at bedside to explain further process to patient
--- NOTE | 2025-05-18 17:59 | EDNOTE_ITS ---
Emergency Room Addendum <Daniela Jha - Last Filed: 05/18/25 19:54> Addendum Narrative: I took over the care from Dr. Solis at 6 PM on 05/18/2025, see notes for complete H&P and ED course. I reviewed all diagnostic test results. At this point, diagnoses include: Palpitations Treatment here from me included: Xanax Based on my best medical judgment, made decision no further evaluation or treatment indicated at this time. Patient understands and agrees to the discharge instructions customized and printed, see below. Discharge instructions from Dr. Brand: 1. After extensive evaluation, there is no life-threatening condition.? Such as stroke or brain tumor or heart attack or pneumothorax (collapsed lung). 2. Your symptoms may be due to underlying stress or anxiety or nerves.? This is fairly common. 3. Take Xanax as needed.? Whether this helps or not will be valuable information to your private doctors. 4. See a private doctor on 05/19/2025 for recheck and further care. To make sure there is no serious underlying heart condition, ask to help you get more tests for your heart that cannot be done here in the ER.? Such as Holter Monitor (cardiac monitoring at home from a day to even a month), heart stress test (on treadmill or with medication), echocardiogram (imaging of your heart structures), heart catherization (checking for blockages in your heart arteries), and a referral to see a [employer]. Ask to review all test results and official radiology reports, to make sure you receive all necessary follow-ups and monitoring. 5. Seek immediate medical care with worsening or with any concerns.?? Try to check your BP just after he wake up and just before you sleep. Seek immediate medical care with SBP (higher BP number) over 200 or under 90. Buddy Brand MD <Buddy Brand MD - Last Filed: 05/18/25 21:01> Addendum Narrative: I took over the care from Dr. Solsi at 6 PM on 05/18/2025, see notes for complete H&P and ED course. Patient presented with episodes of fear, pounding and racing heart, chills, trouble breathing, chest pain, nausea, numbness and tingling in the hands and feet and face, and feeling faint. I reviewed all diagnostic test results, including negative troponin. At this point, diagnoses include: Possible anxiety attacks Treatment here from me included: Xanax She felt much better. Recommended more outpatient cardiac workup. Based on my best medical judgment, made decision no further evaluation or treatment indicated at this time. Patient understands and agrees to the discharge instructions customized and printed, see below. Discharge instructions from Dr. Brand: 1. After extensive evaluation, there is no life-threatening condition.? Such as stroke or brain tumor or heart attack or pneumothorax (collapsed lung). 2. Your symptoms may be due to underlying stress or anxiety or nerves.? This is fairly common. 3. Take Xanax as needed.? Whether this helps or not will be valuable information to your private doctors. 4. See a private doctor on 05/19/2025 for recheck and further care. To make sure there is no serious underlying heart condition, ask to help you get more tests for your heart that cannot be done here in the ER.? Such as Holter Monitor (cardiac monitoring at home from a day to even a month), heart stress test (on treadmill or with medication), echocardiogram (imaging of your heart structures), heart catherization (checking for blockages in your heart arteries), and a referral to see a [employer]. Ask to review all test results and official radiology reports, to make sure you receive all necessary follow-ups and monitoring. 5. Seek immediate medical care with worsening or with any concerns.?? Try to check your BP just after he wake up and just before you sleep. Seek immediate medical care with SBP (higher BP number) over 200 or under 90. Buddy Brand MD
[2025-05-18 18:47] LABS: Magnesium 1.9 mg/dL (1.6-2.6)
[2025-05-18 19:40] LABS: Thyroid Stimulating Hormone 1.44 uIU/mL (0.55-4.78)
[2025-05-18 19:55] LABS: T4 (Thyroxine) 12.7 mcg/dL (4.5-10.9)
== END 2025-05-18 20:30 | disposition home or self-care (01) ==
PROVIDERS: Emergency Medicine; Emergency Provider Emergency Medicine; PCP Internal Medicine
DX: R00.0 Tachycardia, unspecified (principal); R00.2 Palpitations; R06.02 Shortness of breath; R94.31 Abnormal electrocardiogram [ECG] [EKG]; R51.9 Headache, unspecified; D73.89 Other diseases of spleen; I10 Essential (primary) hypertension; F17.210 Nicotine dependence, cigarettes, uncomplicated
CPT/HCPCS: 36415; 70450; 71045; 71275; 74177; 76700; 80053; 80307; 81001; 83735; 84436; 84443; 84484; 85025; 93005; 99284; A4649; J7120; Q9967; A9270

== ENCOUNTER → 2025-06-27 | Outpatient (CLI) | payer BC, SELFPAY ==
--- NOTE | 2025-06-27 07:45 | XR_ITS ---
EXAMINATION: Thyroid sonography complete TECHNIQUE: Grayscale sonographic images thyroid lobes Date and time: June 27, 2025, 0737 hours INDICATIONS: CT chest 05/18/2025 bilateral subcentimeter thyroid nodules FINDINGS: Right thyroid 4.8 cm Mid pole cyst 6 x 5 mm Lower pole nodule 8 x 7 mm Left thyroid 3.7 cm Upper pole cyst 4 x 4 mm No solid nodules IMPRESSION: Lower pole right thyroid nodule 8 x 4 x 7 mm
== END | disposition home or self-care (01) ==
PROVIDERS: PCP Internal Medicine; Referring Provider Internal Medicine; Visit Provider Internal Medicine
DX: E04.1 Nontoxic single thyroid nodule (principal)
CPT/HCPCS: 76536

== ENCOUNTER 2025-07-07 08:32 | Emergency (ER) | payer BC, SELFPAY ==
[2025-07-07 08:32] VITALS: BMI 22.1
--- NOTE | 2025-07-07 08:37 | PC.NURSE ---
DR. MCPHERSON CALLED TO TRIAGE DESK TO EVALUATE FOR POSSIBLE STROKE ALERT. NO STROKE ALERT PER DR. MCPHERSON
--- NOTE | 2025-07-07 08:39 | EKG_ITS ---
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
[2025-07-07 08:51] VITALS: BP 143/97; PULSE 92; RESP 18; TEMP 36.6; O2SAT 99
--- NOTE | 2025-07-07 08:59 | XR_ITS ---
Examination: CT brain head without contrast. 2-D sagittal coronal reconstructions Date and time of exam: July 07, 2025, 0915 hours, comparison 05/18/2025 INDICATIONS: Onset headaches blurred vision today CTDI: vol (mGy): 45.8 DLP: (mGycm): 822 Technique: Multiple CT axial sections of the brain have been obtained, 5 mm slice thickness. Contrast has not been administered. 2-D sagittal, coronal reconstructions have been obtained Low dose protocols were performed. One or more of the following dose reduction techniques were used; automated exposure control, adjustment of the mA and/or KV according to patient size, use of iterative reconstruction technique. Findings: No significant ventricular enlargement. Intra-axial or extra-axial hemorrhage density is not seen. No mass effect or midline shift Basal cisterns are not remarkable. Fourth ventricle is midline. Cranial vault intact. Impression: Negative for acute hemorrhage, mass effect or midline shift If symptoms persist, consider brain MRI follow-up, stroke protocol
--- NOTE | 2025-07-07 09:01 | PD.EDRME ---
Rapid Medical Screening Exam E Arrival date/time: 07/07/25 08:32 50-year-old female with a history of type 2 diabetes, hypertension presents to the emergency room with a chief complaint of blurry vision, double vision, headache x 2 days I have greeted and performed a focused initial assessment of this patient. A comprehensive ED assessment and evaluation of the patient, analysis of all test results, and completion of the medical decision making process will be conducted by additional ED providers. Chief Complaint: Neuro Symptoms/Deficit Vital signs: Vital Signs Temperature 98 F 07/07/25 08:51 Pulse Rate 92 07/07/25 08:51 Respiratory Rate 18 07/07/25 08:51 Blood Pressure 143/97 H 07/07/25 08:51 Pulse Oximetry (%) 99 07/07/25 08:51 Oxygen Delivery Method Room Air 07/07/25 08:51 Vital signs reviewed by provider: Yes Exam: Patient is a GCS 15 alert and oriented x 3 pupils are PERRLA EOMs are intact Strong and regular rhythm S1 and S2 noted no clicks no murmurs no JVD Clinical Impression: CVA/vertigo/
[2025-07-07] MEDS: ACETAMINOPHEN 325 MG TABLET 650 MG PO (09:29)
[2025-07-07 09:44] LABS: Collection Type, Urine Clean Catch
[2025-07-07 09:50] LABS: Basophils # (Auto) 0.0 Thou/mm3 (0.0-0.2); Basophils % (Auto) 0 % (0-2.5); Eosinophils # (Auto) 0.0 Thou/mm3 (0.0-0.5); Eosinophils % (Auto) 0 % (0-10); Hematocrit 43.5 % (36.0-46.0); Hemoglobin 15.0 g/dL (12.0-16.0); Immature Granulocytes Auto 0.03 Thou/mm3 (0.00-0.00); Lymphocytes # (Auto) 2.3 Thou/mm3 (1.0-4.8); Lymphocytes % (Auto) 24 % (10-50); Mean Corpuscular HGB Conc 34.5 g/dl (31.0-37.0); Mean Corpuscular Hemoglobin 30.5 pg (25.0-35.0); Mean Corpuscular Volume 89 fL (80-100); Monocytes # (Auto) 0.7 Thou/mm3 (0.0-0.8); Monocytes % (Auto) 8 % (0-12); Neutrophils # (Auto) 6.3 Thou/mm3 (1.8-7.7); Neutrophils % (Auto) 67 % (37-80); Nucleated Red Blood Cell # 0.00 Thou/mm3 (0.00-0.00); Nucleated Red Blood Cell % 0 /100 WBC (0); Platelet Count 217 Thou/mm3 (140-440); RDW Standard Deviation 45.6 fL (36.4-46.3); Red Blood Count 4.91 Miln/mm3 (4.00-5.20); White Blood Count 9.4 Thou/mm3 (3.6-11.0)
[2025-07-07 10:02] LABS: Bilirubin,Urine Negative (Negative); Blood,Urine Negative (Negative); Clarity,Urine Clear (Clear/Hazy); Color,Urine Lt-Yellow (Lt Yel-Yel); Culture Indicated,Urine Not Indicated; Glucose, Urine Negative (Negative); Ketones,Urine 1+ (Negative); Leukocyte Esterase,Urine Negative (Negative); Nitrite,Urine Negative (Negative); PH,Urine 6.0 (5.0-7.0); Protein,Urine Negative (Neg - Trace); RBC,Urine 1 /hpf (0-3); Specific Gravity,Urine 1.007 (1.001-1.035); Squamous Epithelial Cell,Urine 2 /hpf (0-5); Urobilinogen,Urine Negative mg/dL (0.0-1.0); WBC,Urine 1 /hpf (0-5)
[2025-07-07 10:07] LABS: Sed Rate (ESR) 11 mm/hr (0-30)
[2025-07-07 10:11] LABS: Amphetamine/Methamp Scrn,U Negative (Negative); Barbiturate Screen,Urine Negative (Negative); Benzodiazepines Screen,Urine Negative (Negative); Benzoylecgonine Screen, Ur Negative (Negative); Fentanyl Screen,Urine Negative (Negative); Opiate Screen,Urine Negative (Negative); THC Screen,Urine Negative (Negative)
[2025-07-07 10:18] LABS: INR 1.0 (0.9-1.3); Partial Thromboplastin Time 27.9 Seconds (22.0-36.0); Prothrombin Time 10.3 Seconds (9.0-12.2)
[2025-07-07 10:24] LABS: B-Type Natriuretic Peptide 20 pg/mL (0-100)
[2025-07-07 10:47] LABS: Alanine Aminotransferase 12 U/L (10-49); Albumin, Serum 4.9 gm/dL (3.5-5.0); Albumin/Globulin Ratio 3.1 (1.2-2.2); Alkaline Phosphatase 71 U/L (46-116); Anion Gap 8 (7-16); Aspartate Amino Transferase 14 U/L (0-34); BUN/Creatinine Ratio 11 Ratio (12-20); Bilirubin,Total 0.7 mg/dL (0.3-1.2); Blood Urea Nitrogen 8 mg/dL (9-23); Calcium 10.0 mg/dL (8.3-10.6); Calcium (Corrected) 10.0 mg/dL (8.5-10.1); Carbon Dioxide 24.7 mMol/L (20.0-31.0); Chloride 108 mMol/L (98-107); Creatinine (Component) 0.7 mg/dL (0.6-1.3); Estimated Creatinine Clearance 92.5 mL/min (>60); Free T4 (Free Thyroxine) 1.64 ng/dL (0.89-1.76); Globulin 1.6 gm/dL (2.3-3.5); Glucose 125 mg/dL (74-106); Magnesium 2.0 mg/dL (1.6-2.6); Osmolality,Calculated 280 (275-295); Potassium 4.1 mMol/L (3.4-5.1); Sodium 141 mMol/L (136-145); Thyroid Stimulating Hormone 0.87 uIU/mL (0.55-4.78); Total Protein 6.5 gm/dL (5.7-8.2); Troponin I < 0.002 ng/mL (0.0-0.045); eGFR > 60 See Note
[2025-07-07 11:20] LABS: C-Reactive Protein < 0.5 mg/dL (0.0-0.9)
--- NOTE | 2025-07-07 12:43 | EDNOTE_ITS ---
<Statement entered by Chasity Duarte MD - 07/07/25 17:56> As co-signing physician, I was present and available for consult prn. I concur with the plan and care as documented by the midlevel provider. ED General RME/HPI General Chief complaint: Neuro Symptoms/Deficit Stated complaint: DOUBLE VISION x 2 DAYS Time Seen by Provider: 07/07/25 12:32 Arrival date/time: 07/07/25 08:32 CC: Blurry vision HPI onset yesterday while looking at a computer screen, patient states she is not sure if it is intermittent or not but currently its resolved. Patient states she had a headache with some mild dizziness, the patient states she currently has some mild dizziness but no headache and no b lurred vision anymore. Patient is awake alert oriented anxious nontoxic- appearing not in any acute distress. RME / HPI RME / HPI narrative: 07/07/25 08:32 50-year-old female with a history of type 2 diabetes, hypertension presents to the emergency room with a chief complaint of blurry vision, double vision, headache x 2 days I have greeted and performed a focused initial assessment of this patient. A comprehensive ED assessment and evaluation of the patient, analysis of all test results, and completion of the medical decision making process will be conducted by additional ED providers. Exam: Patient is a GCS 15 alert and oriented x 3 pupils are PERRLA EOMs are intact Strong and regular rhythm S1 and S2 noted no clicks no murmurs no JVD Impression: CVA/vertigo/ Related Data Previous Rx's ?Medication ?Instructions ?Recorded lisinopril 20 mg tablet 20 mg PO QDAY #30 tabs 04/05 metformin 500 mg tablet 500 mg PO BID #60 tabs 04/05 alprazolam 0.25 mg tablet (Xanax) 0.25 mg PO BID PRN a nxiety #10 tabs 05/18/25 Allergies Allergy/AdvReac Type Severity Reaction Status Date / Time Penicillins Allergy Severe Rash Verified 07/07/25 08:35 codeine AdvReac Severe VOMITING Verified 07/07/25 08:35 Review of Systems Review of Systems Narrative Review of Systems: GEN: No fever, no chills, no weight loss EYES: No discharge, no visual changes, no pain HEENT: No ear pain, no congestion, no sore throat PULM: No shortness of breath, no cough, no congestion CV: No chest pain, no dyspnea on exertion, no palpitations GI: No nausea, no vomiting, no diarrhea, no pain, no constipation : No frequency, no urgency, no dysuria MUSC/SKEL: No joint pain, no back pain SKIN: No rash PSYCH: No hallucinations, no depression HEME/LYMPH: No easy bleeding or bruising tendencies NEURO: No weakness, + headache Past Medical History Past Medical History NEUROLOGIC: Negative Neurological Disorders CARDIAC: Negative Cardiac Disorders or Congestive Heart Failure RESPIRATORY: Negative Chronic Obstructive Pulmonary Disease (COPD) or Asthma GASTROINTESTINAL: Negative Gastrointestinal Disorders GENITOURINARY: Negative Renal Disease MUSCULOSKELETAL: Negative Musculoskeletal Disorders ENDOCRINE: Positive Diabetes Mellitus Type 2; Negative Diabetes Mellitus Type 1 HEMATOLOGIC: Negative Sickle Cell Disease Surgical History SURGICAL: Negative Neurologic Surgery, Brain Shunt or Hysterectomy Social History SMOKING STATUS: Current every day smoker SUBSTANCE USE: does not use ED Exam Narrative Physical exam: [General: Anxious, but not in any acute distress Head normocephalic HEENT: Eyes: Mild exophthalmos, pupils are PERRLA EOMs are intact no entrapment. Reading short distance long distance without complication denies any blurry vision. All other subsystems of HEENT are within acceptable limits Neck is supple nontender Chest equal chest rise nontender to palpation Respiratory: Clear to auscultation no wheezes crackles or rubs CV: Rate rhythm is regular no murmurs rubs or clicks Abdomen is soft nontender no masses positive bowel sounds all 4 quadrants Back: No CVA tenderness no spinous process tenderness from cervical spine thoracic and lumbar spine Skin: Intact no petechiae rash induration ulceration or crepitus Extremities: Moving all extremity against resistance cap refill less than 2 seconds neurosensory intact Neuro: Awake alert oriented x3 Glascow coma 15 no focal deficits] Course Course Course Narrative: At the time of the exam the patient is mildly anxious, and states that she has an systems checkout mechanic appointment coming up , and she will follow-up with this however the patient has no symptoms other than the mild dizziness the patient is declining medication for the dizziness stating she does not like taking pills. The patient is able to ambulate without complications we will discharge her home to follow-up with ophthalmology and her PCP. Patient advised if there is a worsening of symptoms to return the emergency room for reevaluation. Quality Measures none Orders Category Date Time Status EKG (ED ONLY) *Do not use* NOW Care 07/07/25 08:39 Completed Visual Acuity X1 Care 07/07/25 09:[address] head/brain wo con Stat Exams 07/07/25 08:59 Completed EKG (ED Only) Stat Exams 07/07/25 08:39 Draft B-Type Natriuretic Peptide Stat Lab 07/07/25 09:29 Completed CBC Stat Lab 07/07/25 09:29 Completed CRP [C-Reactive Protein] Stat Lab 07/07/25 09:29 Completed Comprehensive Metabolic Panel Stat Lab 07/07/25 09:29 Completed Drug Screen,Urine Stat Lab 07/07/25 09:20 Completed ESR [Sed Rate (ESR)] Stat Lab 07/07/25 09:29 Completed Free T4 (Free Thyroxine) Stat Lab 07/07/25 09:29 Completed Magnesium Stat Lab 07/07/25 09:29 Completed Partial Thromboplastin Time Stat Lab 07/07/25 09:29 Completed Prothrombin Time with INR Stat Lab 07/07/25 09:29 Completed TSH [Thyroid Stimulating Hormone] Stat Lab 07/07/25 09:29 Completed Troponin I Stat Lab 07/07/25 09:29 Completed Urinalysis, C/S if Indicated Stat Lab 07/07/25 09:20 Completed Acetaminophen Tab [Tylenol Tab] Med 07/07/25 08:59 Discontinued 650 mg PO X1 ONE Vital Signs Vital signs: Vital Signs Temperature 98 F 07/07/25 08:51 Pulse Rate 92 07/07/25 08:51 Respiratory Rate 18 07/07/25 08:51 Blood Pressure 143/97 H 07/07/25 08:51 Pulse Oximetry (%) 99 07/07/25 08:51 Oxygen Delivery Method Room Air 07/07/25 08:51 Discharge Plan Plan Patient Disposition: HOME (Self Care) Patient condition on transfer: Stable Prescriptions/Referrals Prescriptions/Med Rec: No Action lisinopril 20 mg tablet 20 mg PO QDAY Qty: 30 0RF metformin 500 mg tablet 500 mg PO BID Qty: 60 0RF alprazolam [Xanax] 0.25 mg tablet 0.25 mg PO BID PRN (Reason: anxiety) Qty: 10 0RF Referrals: Patricio Orozco MD [Referring Provider, Opthalmology] - In 1 week Mercedes Banerjee MD [Primary Care Provider, Nephrology] - In 1 week Problem List Clinical Impression: Headache, Blurred vision, Dizziness Patient/Caregiver Discharge Instructions Education Materials: Self-Care for Headaches, ED Blurred Vision Additional Instructions: Follow-up with the systems checkout mechanic, if there is a worsening of symptoms and they persist return to the emergency room for reevaluation. Print Language: Latvian Stand Alone Forms: Jamila Award Info., Work/School Release, Patient Portal Info Letter PA/JUDY Supervising Physician ALEXIS/JUDY Supervising Physician: Randy Hester ENP [facility] Clinical Information Provided by: patient Medical Records reviewed [facility] Meds/Rx considered, not ordered None Labs/Rad/Tests considered, not ordered None Chronic Illness/Social Conditions Explain: Diabetes EKG Interpretation EKG #1: EKG Interpretation: EKG performed at 0 854 shows a ventricular rate of 89 RI interval 147 QRS of 83 QTc of 393 this is sinus rhythm. Labs Labs: interpreted by ky Lab(s) Interpretation(s): CBC shows no acute leukocytosis anemia thrombocytopenia Coags within acceptable limits Glucose at 125 otherwise CMP shows no acute electrolyte imbalances renal impairment transaminitis or T. bili elevation C-reactive appointment is unremarkable troponin and BNP are unremarkable. TSH is 0.87 free T41.64 Urine is negative for any infection UDS is negative Imaging Imaging interpretation: interpreted by me Imaging Interpretation(s): CT head is negative for any acute finding. Medication Administration(s) none Medication Administration History Discontinued Medications Acetaminophen (Acetaminophen 325 Mg Tablet) 650 mg PO X1 ONE Stop: 07/07/25 09:00 Last Admin: 07/07/25 09:29 Dose: 325 mg Documented By: OBINNA Comments: pt refused second pill, provider aware Diagnosis Differential Diagnosis ED Complaint MDM: TIA CVA vertigo
== END 2025-07-07 12:55 | disposition home or self-care (01) ==
PROVIDERS: Nurse Practitioner Family; Emergency Provider Emergency Medicine; PCP Internal Medicine
DX: R51.9 Headache, unspecified (principal); H53.8 Other visual disturbances; R42 Dizziness and giddiness; R94.31 Abnormal electrocardiogram [ECG] [EKG]; I10 Essential (primary) hypertension; F17.210 Nicotine dependence, cigarettes, uncomplicated
CPT/HCPCS: 36415; 70450; 80053; 80307; 81001; 83735; 83880; 84439; 84443; 84484; 85025; 85610; 85652; 85730; 86140; 93005; 99283; A9270

== ENCOUNTER → 2025-08-04 | Outpatient (CLI) | payer BC, SELFPAY ==
[2025-08-04 07:45] LABS: Collection Type, Urine Clean Catch
[2025-08-04 08:06] LABS: Basophils # (Auto) 0.0 Thou/mm3 (0.0-0.2); Basophils % (Auto) 0 % (0-2.5); Eosinophils # (Auto) 0.0 Thou/mm3 (0.0-0.5); Eosinophils % (Auto) 0 % (0-10); Hematocrit 44.4 % (36.0-46.0); Hemoglobin 15.0 g/dL (12.0-16.0); Immature Granulocytes Auto 0.03 Thou/mm3 (0.00-0.00); Lymphocytes # (Auto) 2.2 Thou/mm3 (1.0-4.8); Lymphocytes % (Auto) 22 % (10-50); Mean Corpuscular HGB Conc 33.8 g/dl (31.0-37.0); Mean Corpuscular Hemoglobin 31.5 pg (25.0-35.0); Mean Corpuscular Volume 93 fL (80-100); Monocytes # (Auto) 0.7 Thou/mm3 (0.0-0.8); Monocytes % (Auto) 7 % (0-12); Neutrophils # (Auto) 6.9 Thou/mm3 (1.8-7.7); Neutrophils % (Auto) 70 % (37-80); Nucleated Red Blood Cell # 0.00 Thou/mm3 (0.00-0.00); Nucleated Red Blood Cell % 0 /100 WBC (0); Platelet Count 187 Thou/mm3 (140-440); RDW Standard Deviation 45.8 fL (36.4-46.3); Red Blood Count 4.76 Miln/mm3 (4.00-5.20); White Blood Count 9.9 Thou/mm3 (3.6-11.0)
[2025-08-04 08:19] LABS: Creatinine MALB Rnd Ur 139 mg/dL (30-125); Microalbumin Creat Ratio 63 mg/gCrea (<30); Microalbumin, Random Urine 87 mg/L (0-300)
[2025-08-04 08:23] LABS: Alanine Aminotransferase 8 U/L (10-49); Albumin, Serum 4.4 gm/dL (3.5-5.0); Albumin/Globulin Ratio 2.1 (1.2-2.2); Alkaline Phosphatase 67 U/L (46-116); Anion Gap 10 (7-16); Aspartate Amino Transferase 13 U/L (0-34); BUN/Creatinine Ratio 18 Ratio (12-20); Bilirubin,Total 0.7 mg/dL (0.3-1.2); Blood Urea Nitrogen 11 mg/dL (9-23); Calcium 9.3 mg/dL (8.3-10.6); Calcium (Corrected) 9.3 mg/dL (8.5-10.1); Carbon Dioxide 25.5 mMol/L (20.0-31.0); Cardiac Risk Estimate 4.6 RATIO (3.7-5.6); Chloride 107 mMol/L (98-107); Cholesterol 182 mg/dL (132-200); Creatinine (Component) 0.6 mg/dL (0.6-1.3); Globulin 2.1 gm/dL (2.3-3.5); Glucose 165 mg/dL (74-106); HDL Cholesterol 40 mg/dL (40-60); LDL Cholesterol,Calculated 115 mg/dL (0-130); Osmolality,Calculated 286 (275-295); Potassium 4.1 mMol/L (3.4-5.1); Sodium 142 mMol/L (136-145); Total Protein 6.5 gm/dL (5.7-8.2); Triglycerides 136 mg/dL (30-150); eGFR > 60 See Note
[2025-08-04 08:28] LABS: Bacteria,Urine Rare; Bilirubin,Urine Negative (Negative); Blood,Urine Negative (Negative); Calcium Oxalate Crystals,Urine 3+; Clarity,Urine Turbid (Clear/Hazy); Color,Urine Yellow (Lt Yel-Yel); Glucose, Urine Negative (Negative); Ketones,Urine 2+ (Negative); Leukocyte Esterase,Urine Positive (Negative); Nitrite,Urine Negative (Negative); PH,Urine 6.0 (5.0-7.0); Protein,Urine 1+ (Neg - Trace); RBC,Urine 1 /hpf (0-3); Specific Gravity,Urine 1.024 (1.001-1.035); Squamous Epithelial Cell,Urine 10 /hpf (0-5); Urobilinogen,Urine 2.0 mg/dL (0.0-1.0); WBC,Urine 5 /hpf (0-5)
[2025-08-04 08:43] LABS: Glucose Estimated Average 123 mg/dL (80-131); Hemoglobin A1C 5.9 % Hgb (4.8-6.0)
== END | disposition home or self-care (01) ==
PROVIDERS: PCP Internal Medicine; Referring Provider Internal Medicine; Visit Provider Internal Medicine Cardiovascular Disease
DX: E11.9 Type 2 diabetes mellitus without complications (principal); I10 Essential (primary) hypertension; E78.5 Hyperlipidemia, unspecified
CPT/HCPCS: 36415; 80053; 80061; 81001; 82043; 82570; 83036; 85025